=== PATIENT | female | born 1985 | race African-American/Black ===

== ENCOUNTER 2022-05-15 13:42 | Emergency (ER) | payer OTHER, SELFPAY ==
--- NOTE | ~2022-05-15 | XR_ITS ---
EXAMINATION: XR chest 2V DATE: 05/15/2022 14:47 INDICATION: Shortness of breath TECHNIQUE: frontal and lateral views of the chest were obtained. COMPARISON: None FINDINGS: Mildly decreased lung volumes on the lateral projection likely due to incomplete inspiration. No foca l airspace opacities, pulmonary edema, pleural effusion or pneumothorax.. The cardiomediastinal silho uette is normal. Visualized bones and soft tissues are unremarkable. IMPRESSION: 1. No acute cardiopulmonary disease. Reviewed, dictated and finalized at location A. NISTRATIVE OFFICER
[2022-05-15 13:50] VITALS: BP 141/76; PULSE 100; RESP 16; TEMP 36.6; O2SAT 100
--- NOTE | 2022-05-15 14:15 | ECG_ITS ---
Measurements Intervals [place] Rate: 87 P: 52 [place]: 167 QRS: 38 QRSD: 105 T: 35 QT: 346 QTc: 417 Interpretive Statements SINUS RHYTHM MINIMAL Q WAVES- INF/HIGH LAT LEADS BASELINE ARTIFACT- I, III, AVR, AVL, V4, V6 BORDERLINE ECG NO PREVIOUS ECG AVAILABLE FOR COMPARISON Electronically Signed On 05-15-2022 20:49:55 FLAKER OPERATOR by Davey Lazar D.O.
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
[2022-05-15 14:41] LABS: Basophils Percent Auto 0.5 % (0.2-1.2); Eosinophils Percent Auto 0.3 % (0-4.4); Hematocrit 38.7 % (37.0-47.0); Hemoglobin 12.6 g/dL (12.0-15.0); Immature Granulocyte Absolute 0.02 K/mm3 (0.00-0.031); Immature Granulocyte Percent A 0.3 % (0-0.5); Lymphocytes Absolute Auto 0.66 K/mm3 (0.9-3.2); Lymphocytes Percent Auto 11.1 % (18.3-44.2); Mean Corpuscular HGB Conc 32.6 g/dl (32-36); Mean Corpuscular Volume 95.1 fl (80-100); Mean Platelet Volume 9.1 fl (7.4-10.4); Monocytes Absolute Auto 0.7 K/mm3 (0.1-0.6); Monocytes Percent Auto 11.1 % (2.6-8.5); Neutrophils Absolute Auto 4.5 K/mm3 (1.3-6.7); Neutrophils Percent Auto 76.7 % (45.5-73.1); Platelet Count Result 256 k/mm3 (150-375); Red Blood Count 4.07 M/mm3 (4.2-5.4); Red Cell Distribution Width 12.5 % (11.5-14.5); White Blood Count 5.9 K/mm3 (4.5-10.0)
[2022-05-15 14:50] LABS: Anion Gap 9 mmol/L (8-16); Blood Urea Nitrogen 7 mg/dL (7-17); Calcium 8.9 mg/dL (8.4-10.2); Carbon Dioxide 23 mmol/L (22-30); Chloride 103 mmol/L (98-107); Estimated CRCL calculation 128 ml/min; Estimated Glomerular Filt Rate > 60; Glucose 88 mg/dL (65-110); Potassium 3.1 mmol/L (3.4-5.0); Sodium 135 mmol/L (137-145)
[2022-05-15 15:02] LABS: Troponin I < 0.012 ng/mL (0.000-0.034)
[2022-05-15 15:09] VITALS: RESP 19; O2SAT 99
[2022-05-15] MEDS: ALPRAZolam (*CRX) 0.5 MG TABLET PO (16:13)
== END 2022-05-15 16:17 | disposition home or self-care (01) ==
PROVIDERS: Emergency Provider Emergency Medicine
DX: F41.9 Anxiety disorder, unspecified (principal); R94.31 Abnormal electrocardiogram [ECG] [EKG]
CPT/HCPCS: 36415; 71046; 80048; 84484; 85025; 93005; 99284; A9270

== ENCOUNTER 2025-01-17 08:05 | Emergency (ER) | payer SELFPAY ==
--- NOTE | ~2025-01-17 | US_ITS ---
EXAMINATION: US pelvic complete w TV INDICATION: Right-sided pelvic pain. Frequent urination. Comparison:Right flank pain. Frequent urination. TECHNIQUE: Multiple transabdominal and endovaginal sonographic images of the pelvis performed. FINDINGS: The uterus measures 11 x 3.4 x 5.9 cm. The endometrial complex measures 2 mm. The right ovary measures 2.8 x 2.9 x 1.6 cm and the left ovary measures 3.1 x 3.5 x 1.9 cm. There ar e small follicles in each ovary. Normal doppler signal in both ovaries. There is free fluid in the pelvis. There are no abnormal masses seen on either side. IMPRESSION: 1. Enlarged uterus. Reviewed, dictated and finalized at location B. IMPRESSION: 1. Enlarged uterus.
--- NOTE | ~2025-01-17 | CT_ITS ---
CLINICAL INDICATION: Right flank pain COMPARISON: None. TECHNIQUE: Multiple contiguous axial images of the abdomen and pelvis were performed without the admi nistration of intravenous contrast The dose-length product (DLP) was 511.41 mGy-cm. Automated exposure control and iterative reconstruction technique were employed. FINDINGS/OBSERVATIONS: Visualized lower thorax: The bilateral lung bases are clear. The heart is of normal size, without pericardial effusion. Liver: The liver demonstrates homogeneous attenuation and is enlarged measuring 22 cm in longitudinal dimens ion. Gallbladder and biliary system: The gallbladder is only minimally distended, and otherwise unremarkable. Pancreas: Limited evaluation of the pancreas secondary to the lack of intravenous contrast. Spleen: The spleen demonstrates homogeneous attenuation and is not enlarged. . Kidneys: The bilateral kidneys are unremarkable, without hydronephrosis or renal calculi. Adrenal glands: Unremarkable. Gastrointestinal tract: Fecal stasis within the colon. Appendix: The air-filled appendix is of normal caliber (axial series, images 142 through 151) Vasculature: Unremarkable. Lymph nodes: Limited evaluation without intravenous contrast. Pelvic structures: The bladder is decompressed, limiting its evaluation. The uterus is anteverted and anteflexed, and otherwise unremarkable. Calcified stone within the right hemipelvis, within the lower uterine segment. Body wall and musculoskeletal: Small fat-containing umbilical hernia. No significant degenerative disease within the lower thoracic or lumbosacral spine. IMPRESSION: No obstructive uropathy. Hepatomegaly. Reviewed, dictated and finalized at location A.
--- OUTSIDE RECORDS SUMMARY | 2025-01-17 08:11 | XMS_ITS | Referral Summary ---
Author Organization [facility] [address] Address [address] [place] [address] Care Team Providers Care Radiotelegraph Operator Name Role Phone Jericho Elizondo MD Unavailable [phone] Allergies No known active allergies Medications cetirizine (ZyrTEC) 10 mg tablet Take 1 tablet (10 mg total) by mouth daily 05/21/2024 Active fluticasone propionate (FLONASE) 50 mcg/actuation nasal spray USE 1 SPRAY IN EACH NOSTRIL EVERY NIGHT BEFORE BEDTIME 05/21/2024 Active Active Problems Problem Noted Date Diagnosed Date Breast discharge 07/04/2024 Assessment & Plan (07/04/2024 10:52 AM TRANSPORTATION MAINTENANCE WORKER): -The patient has the practice. Recent right nipple milky discharge which turned to slight bloody discharge last week. No history of same. No injury or trauma. -Examination today is unremarkable. -Recommend serum prolactin level. If elevated recommend repeat 1st thing in the morning. -Recommend bilateral diagnostic mammogram. -Discussed with the patient the low likelihood of breast cancer or other significant pathology. She agrees to proceed with the evaluation. -Encouraged regular monthly self-breast examinations. H/O section 07/04/2024 H/O dilation and curettage 07/04/2024 Protein S deficiency 07/04/2024 HSV (herpes simplex virus) anogenital infection 07/04/2024 H/O tubal ligation 07/04/2024 FH: breast cancer 07/04/2024 Social History Tobacco Use Types Packs/Day Years Used Date Smoking Tobacco: Never Passive Smoke Exposure: Never Smokeless Tobacco: Never Personal Safety Answer Date Recorded Getting School Help Needed Not on file 07/03 Comments No Sex and Gender Information Value Date Recorded Sex Assigned at Not on file Legal Sex Female 7:45 PM TRANSPORTATION MAINTENANCE WORKER Gender Identity Not on file Sexual Orientation Not on file Last Filed Vital Signs Vital Sign Reading Time Taken Comments Blood Pressure 118/70 07/04/2024 10:30 AM TRANSPORTATION MAINTENANCE WORKER Pulse 80 09/25/2018 10:15 PM CDT Temperature 36.8 C (98.2 F) 09/25/2018 10:15 PM CDT Respiratory Rate - - Oxygen Saturation 97% 09/25/2018 10:15 PM CDT Inhaled Oxygen Concentration - - Weight 92.1 kg (203 lb) 07/04/2024 10:30 AM TRANSPORTATION MAINTENANCE WORKER Height 165 cm (5' 4.96) 07/04/2024 10:30 AM TRANSPORTATION MAINTENANCE WORKER Body Mass Index 33.82 07/04/2024 10:30 AM TRANSPORTATION MAINTENANCE WORKER Plan of Treatment Not on file Procedures Procedure Name Priority Date/Time Associated Diagnosis Comments DIAGNOSTIC MAMMOGRAM BILATERAL W ABHAY Schedule Routine, Read Routine (OP Routine) 07/18/2024 2:04 PM TRANSPORTATION MAINTENANCE WORKER Nipple discharge from Last 3 Months or Most Recently Relevant to Health Maintenance Results * Diagnostic Mammogram Bilateral W Abhay (07/18/2024 2:04 PM TRANSPORTATION MAINTENANCE WORKER) Anatomical Region Laterality Modality Breast Bilateral Mammography 07/18/2024 3:09 PM TRANSPORTATION MAINTENANCE WORKER Impressions 07/18/2024 3:09 PM TRANSPORTATION MAINTENANCE WORKER No suspicious findings in the right breast. No mammographic or sonographic findings to explain right nipple discharge. Breast surgery consultation is recommended for further evaluation. Breast MRI with and without contrast can be considered. Asymmetry in the left breast upper outer quadrant appears to correlate to an island of fibroglandular tissue on ultrasound. Six-month follow-up diagnostic mammogram and ultrasound are recommended to assess stability. If MRI is pursued, this finding can be further evaluated at that time. Due to family history, the patient was given contact information for the breast cancer risk team. OVERALL FINAL ASSESSMENT: BI-RADS Category 3: Probably benign Results and recommendations were discussed with the patient. Electronically signed by: Pedro Salomon 07/18/2024 3:09 PM TRANSPORTATION MAINTENANCE WORKER Bilateral diagnostic mammogram with CAD and tomosynthesis, bilateral breast ultrasound limited: CLINICAL HISTORY: 38-year-old woman describes intermittent clear discharge from the right nipple every few weeks over the past few months, with one episode of bloody nipple discharge. Recent prolactin level on 07/07/2024 was normal. . Prolactin level from 07/04/2024 with elevated. Family history of breast cancer, with mother due to breast cancer at age 44. Baseline mammogram. DENSITY: The breasts are heterogeneously dense, which may obscure small masses. FINDINGS: There are no spiculated masses, malignant type calcifications, distortion or visible adenopathy. There is focal asymmetry in the upper outer left breast most apparent in the CC projection. Ultrasound of the retroareolar right breast demonstrates normal tissue. There is no evidence of ductal ectasia. Ultrasound of the upper outer quadrant of the left breast demonstrates a band of echodense tissue in the 1-2 o'clock position approximately 7 cm from the nipple, correlating to mammographic asymmetry. Jericho Elizondo MD IMG MAMMO PROCEDURES Final R esult from Last 3 Months or Most Recently Relevant to Health Maintenance Insurance [facility] Care Teams Radiotelegraph Operator Relationship Specialty Start Date End Date Jericho Elizondo MD [address] [place] [address] Jewelry Casting Model Maker Obstetrics and Gynecology 07/28/24
--- OUTSIDE RECORDS SUMMARY | 2025-01-17 08:11 | XMS_ITS | Clinical Summary ---
Author Organization [facility] [address] [place] [address] Care Team Providers Care Color Matcher Name Role Phone Jericho Elizondo MD Unavailable [phone] Allergies No known active allergies Medications cetirizine (ZyrTEC) 10 mg tablet Take 1 tablet (10 mg total) by mouth daily 05/21/2024 Active fluticasone propionate (FLONASE) 50 mcg/actuation nasal spray USE 1 SPRAY IN EACH NOSTRIL EVERY NIGHT BEFORE BEDTIME 05/21/2024 Active Active Problems Problem Noted Date Diagnosed Date Breast discharge 07/04/2024 Assessment & Plan (07/04/2024 10:52 AM INSPECTOR CONVEYOR LINE): -The patient has the practice. Recent right [...] tubal ligation 07/04/2024 FH: breast cancer 07/04/2024 Surgical History Surgery Date Site/Laterality Comments SECTION DILATION AND CURETTAGE OF UTERUS Medical History Medical History Date Comments Allergy Social History Tobacco Use Types Packs/Day Years Used Date Smoking Tobacco: Never Passive Smoke Exposure: Never Smokeless Tobacco: Never Personal Safety Answer Date Recorded Getting School Help Needed Not on file 07/03 Comments No Sex and Gender Information Value Date Recorded Sex Assigned at Not on file Legal Sex Female 7:45 PM INSPECTOR CONVEYOR LINE Gender Identity Not on file Sexual Orientation Not on file Obstetrics History Para Term AB IAB SAB Ectopic Multiple Livin g Live Births 7 5 5 2 2 5 5 Date Outcome GA Total Labor Labor/2nd/3rd Weight Sex Type Anes PTL Eboni A1 A5 Name Clin 11/12 Term M C-S j incis Living 07/16 Term M C-S j incis Living 01/31 Term M C-S j incis Living 2013 SAB 10/04 Term M C-S j incis Living 07/08 Term M C-S j incis Living Last Filed Vital Signs Vital Sign Reading Time Taken Comments Blood Pressure 118/70 07/04/2024 10:30 AM INSPECTOR CONVEYOR LINE Pulse 80 09/25/2018 10:15 PM CDT Temperature 36.8 C (98.2 F) 09/25/2018 10:15 PM CDT Respiratory Rate - - Oxygen Saturation 97% 09/25/2018 10:15 PM CDT Inhaled Oxygen Concentration - - Weight 92.1 kg (203 lb) 07/04/2024 10:30 AM INSPECTOR CONVEYOR LINE Height 165 cm (5' 4.96) 07/04/2024 10:30 AM INSPECTOR CONVEYOR LINE Body Mass Index 33.82 07/04/2024 10:30 AM INSPECTOR CONVEYOR LINE Plan of Treatment Health Maintenance Due Date Last Done Comments Cervical Cancer Screening 1984 Depression Screening 1984 Hepatitis C Screening 1984 Varicella Vaccines (1 of 2 - 13+ 2-dose series) 1997 Hepatitis B Screening 2002 Regular Well Visit/Exam 18-64 2002 HPV Vaccines (3 - 3-dose SCD M series) 03/06/2019 11/05/2018, 09/03/2018 Influenza Vaccine (#1) 2025 9, 04/26/2015 Breast Cancer Screening-Mammogram 07/18/2025 07/18/2024 DTaP/Tdap/Td Vaccine (3 - Td or Tdap) 04/25/2029 04/25/2019, 07/30/2015 Pneumococcal vaccine <65 Aged Out No longer eligible based on patient's age to complete this topic Procedures Procedure Name Priority Date/Time Associated Diagnosis Comments DIAGNOSTIC MAMMOGRAM BILATERAL W ABHAY Schedule Routine, Read Routine (OP Routine) 07/18/2024 2:04 PM INSPECTOR CONVEYOR LINE Nipple discharge from Last 3 Months or Most Recently Relevant to Health Maintenance Results * Diagnostic Mammogram Bilateral W Abhay (07/18/2024 2:04 PM INSPECTOR CONVEYOR LINE) Anatomical Region Laterality Modality Breast Bilateral Mammography 07/18/2024 3:09 PM INSPECTOR CONVEYOR LINE Impressions 07/18/2024 3:09 PM INSPECTOR CONVEYOR LINE No suspicious findings in the right breast. [...] discussed with the patient. Electronically signed by: Jannette Case M.D. Narrative 07/18/2024 3:09 PM INSPECTOR CONVEYOR LINE Bilateral diagnostic mammogram with CAD and tomosynthesis, [...] Most Recently Relevant to Health Maintenance Insurance [facility] Care Teams Color Matcher Relationship Specialty Start Date End Date Jericho Elizondo MD [address] [place] [address] Brush Filler Hand Obstetrics and Gynecology 07/28/24
[2025-01-17 08:12] VITALS: BP 136/70; PULSE 95; RESP 16; TEMP 36.4; O2SAT 100
[2025-01-17 08:37] LABS: BEDSIDEPREGUCG Negative (Negative)
[2025-01-17 08:47] LABS: BEDSIDEPREGUCG Negative (Negative)
[2025-01-17 08:57] VITALS: BP 127/81; PULSE 79; RESP 15; O2SAT 100
[2025-01-17] MEDS: SODIUM CHLORIDE 0.9% IV 1,000 ML 999 ML IV CONT (08:58)
[2025-01-17] MEDS: KETOROLAC 30 MG/ML VIAL (*BKC) IV PUSH (08:59)
[2025-01-17 09:10] LABS: Add Urine Microscopic? YES; Appearance Urine Clear (Clear); Glucose Urine UA Negative (Negative); Leukocyte Esterase Ur Trace LEU/UL (Negative); Nitrate Urine Negative (Negative); Non Pathogenic Casts 0-2; Specific Grav Ur 1.006 (1.001-1.035)
[2025-01-17 09:23] LABS: Alanine Aminotransferase 24 U/L (6-35); Albumin Level 3.6 g/dL (3.5-5.1); Alkaline Phosphatase 84 U/L (38-126); Anion Gap 7 mmol/L (4-12); Aspartate Amino Transferase 39 U/L (14-36); Bilirubin,Total 0.3 mg/dL (0.2-1.3); Blood Urea Nitrogen 7 mg/dL (7-17); Calcium 8.8 mg/dL (8.4-10.2); Carbon Dioxide 26 mmol/L (22-30); Chloride 105 mmol/L (98-107); Estimated CRCL calculation 101 ml/min; Estimated Glomerular Filt Rate > 60; Glucose 101 mg/dL (65-110); Potassium 3.7 mmol/L (3.4-5.0); Sodium 138 mmol/L (137-145); Total Protein 7.2 g/dL (6.3-8.2)
[2025-01-17 09:30] LABS: Hematocrit 34.1 % (37.0-47.0); Hemoglobin 11.0 g/dL (12.0-15.0); Immature Granulocyte Percent A 1.4 % (0-0.5); Lymphocytes Absolute Auto 1.14 K/mm3 (0.9-3.2); Mean Corpuscular HGB Conc 32.3 g/dl (32-36); Mean Corpuscular Hemoglobin 32.0 pg (26-34); Mean Corpuscular Volume 99.1 fl (80-100); Nucleated Red Blood Cells Absolute Auto 0.000 K/mm3 (0.0-0.012); Nucleated Red Blood Cells Perc 0.0 % (0.0-0.2); Platelet Count Result 364 k/mm3 (150-375); Red Blood Count 3.44 M/mm3 (4.2-5.4); White Blood Count 7.6 K/mm3 (4.5-10.0)
[2025-01-17 09:42] VITALS: BP 141/95; PULSE 69; RESP 16; O2SAT 100
--- NOTE | 2025-01-17 11:02 | PC.NURSE ---
Report given to Ana M Titus RN all questions answered
--- NOTE | 2025-01-17 11:06 | PC.NURSE ---
Dr Goldberg aware of patients pain med request
[2025-01-17] MEDS: MORPHINE SULFATE (*CRX) 4 MG/ML INJ IV PUSH (11:22)
[2025-01-17 11:23] VITALS: BP 142/89; PULSE 66; RESP 18; O2SAT 100
--- NOTE | 2025-01-17 12:00 | ED_ITS ---
HPI - General Adult General Chief complaint: Urogenital-Female Stated complaint: pelvic/flank pain Time Seen by Provider: 01/17/25 08:10 History of Present Illness HPI narrative: Patient is a 39-year-old female who presents ER with right-sided pelvic and flank pain. Associated with frequent urination. No nausea or vomiting. Comes in waves. No alleviating factors. No dysuria. Has been on antibiotics without improvement. Last unprotected sex was 1 day after her symptoms began and her previous intercourse have been several months. She does not think she has any abnormal vaginal discharge or bleeding. Related Data Allergies Allergy/AdvReac Type Severity Reaction Status Date / Time No Known Allergies Allergy Verified 01/17/25 08:19 Review of Systems 2 Review of Systems: All systems reviewed & are unremarkable except as noted in HPI and below Constitutional: Constitutional: Reports no additional constitutional complaints Cardiovascular: Cardiovascular: Reports no additional cardiovascular complaints Respiratory: Respiratory: Reports no additional respiratory complaints Gastrointestinal: Gastrointestinal: Reports no additional gastrointestinal complaints Genitourinary: Genitourinary: Reports no additional female genitourinary complaints [facility] Past Medical History Medical History (Updated 01/17/25 @ 12:04 by Shay Goldberg MD) Healthy female adult Surgical History Surgical History (Updated 05/15/22 @ 15:19 by Shay Goldberg MD) No pertinent past surgical history Social History Social History (Updated 05/15/22 @ 15:19 by Shay Goldberg MD) Smoking status: Never smoker Exam 2 Narrative: GENERAL: Well-appearing, well-nourished, and in no acute distress. HEAD: Normocephalic, atraumatic. ENT: Mucous membranes moist. CHEST: Clear to auscultation. No respiratory distress. HEART: Regular rate and rhythm. Normal peripheral pulses. ABDOMEN: Soft, nontender, nondistended. No CVA tenderness EXTREMITIES: Normal range of motion. No edema. SKIN: Warm, dry, no rash. NEURO: Alert and oriented x3. PSYCH: Normal mood and affect. Course Course Emergency Course: Patient resting comfortably. Informed of results. Appropriate for discharge home. Moderate fecal stasis. Discharge with stool softener. Mag citrate here. Vital Signs Vital signs: Vital Signs Temperature 97.5 F L 01/17/25 08:12 Pulse Rate 95 01/17/25 08:12 Respiratory Rate 16 01/17/25 08:12 Blood Pressure 136/70 01/17/25 08:12 Pulse Oximetry 100 01/17/25 08:12 Oxygen Delivery Room Air 01/17/25 08:12 Temperature 97.5 F L 01/17/25 08:12 Pulse Rate 85 01/17/25 12:21 Respiratory Rate 16 01/17/25 12:21 Blood Pressure 117/62 01/17/25 12:21 Pulse Oximetry 98 01/17/25 12:21 Oxygen Delivery Room Air 01/17/25 08:12 Medical Decision Making Vital Signs Vital Signs: Vital Signs Temperature 97.5 F L 01/17/25 08:12 Pulse Rate 95 01/17/25 08:12 Respiratory Rate 16 01/17/25 08:12 Blood Pressure 136/70 01/17/25 08:12 Pulse Oximetry 100 01/17/25 08:12 Oxygen Delivery Room Air 01/17/25 08:12 Temperature 97.5 F L 01/17/25 08:12 Pulse Rate 85 01/17/25 12:21 Respiratory Rate 16 01/17/25 12:21 Blood Pressure 117/62 01/17/25 12:21 Pulse Oximetry 98 01/17/25 12:21 Oxygen Delivery Room Air 01/17/25 08:12 Lab Data 01/17/25 08:54 01/17/25 08:54 Labs: Lab Results 01/17/25 01/17/25 01/17/25 Range/Units 08:19 08:45 08:54 WBC 7.6 (4.5-10.0) K/mm3 RBC 3.44 L (4.2-5.4) M/mm3 Hgb 11.0 L (12.0-15.0) g/dL Hct 34.1 L (37.0-47.0) % MCV 99.1 (80-100) fl MCH 32.0 (26-34) pg MCHC 32.3 (32-36) g/dl RDW 12.0 (11.5-14.5) % Plt Count 364 (150-375) k/mm3 MPV 8.8 (7.4-10.4) fl Immature Gran % (Auto) 1.4 H (0-0.5) % Neut % (Auto) 74.1 H (45.5-73.1) % Lymph % (Auto) 14.9 L (18.3-44.2) % [place] % (Auto) 7.6 (2.6-8.5) % Eos % (Auto) 1.3 (0-4.4) % Baso % (Auto) 0.7 (0.2-1.2) % Lymph # (Auto) 1.14 (0.9-3.2) K/mm3 [place] # (Auto) 0.6 (0.1-0.6) K/mm3 Eos # (Auto) 0.1 (0-0.3) K/mm3 Baso # (Auto) 0.1 (0.0-0.1) K/mm3 Abs Immat Gran (auto) 0.11 H (0.00-0.031) K/mm3 Absolute Neuts (auto) 5.7 (1.3-6.7) K/mm3 Absolute Nucleated RBC 0.000 (0.0-0.012) K/mm3 Nucleated RBC % 0.0 (0.0-0.2) % Sodium 138 (137-145) mmol/L Potassium 3.7 (3.4-5.0) mmol/L Chloride 105 (98-107) mmol/L Carbon Dioxide 26 (22-30) mmol/L Anion Gap 7 (4-12) mmol/L BUN 7 (7-17) mg/dL Creatinine 0.65 L (0.7-1.0) mg/dL Estim Creat Clear Calc 101 ml/min Estimated GFR > 60 (59 - ) Glucose 101 (65-110) mg/dL Calcium 8.8 (8.4-10.2) mg/dL Total Bilirubin 0.3 (0.2-1.3) mg/dL AST 39 H (14-36) U/L ALT 24 (6-35) U/L Alkaline Phosphatase 84 (38-126) U/L Total Protein 7.2 (6.3-8.2) g/dL Albumin 3.6 (3.5-5.1) g/dL Urine Color Yellow (Yellow) Urine Appearance Clear (Clear) Urine pH 7.0 (5.0-9.0) Ur Specific [place] 1.006 (1.001-1.035) Urine Protein Negative (Negative) mg/dL Urine Glucose (UA) Negative (Negative) mg/dL Urine Ketones Negative (Negative) mg/dL Ur Blood (Man) Negative (Negative) Urine Nitrate Negative (Negative) Urine Bilirubin Negative (Negative) Urine Urobilinogen 0.2 (<2.0) mg/dL Leukocyte Esterase Rfl Trace H (Negative) HUSSEIN/UL Urine RBC 0-2 (0-2) /hpf Urine WBC 0-5 (0-3) /hpf Ur Squamous Epith Cells Few (Few) /hpf Urine Bacteria Rare /hpf Urine Casts 0-2 POC Urine HCG, Qual Negative Negative (Negative) C. trachomatis (PCR) Not detected (NOT DETECTE) N. gonorrhoeae (PCR) Not detected (NOT DETECTE) Imaging Data Radiologist's impression: ITS Impressions Abdomen/Pelvis CT 01/17/25 08:50 IMPRESSION: No obstructive uropathy. Hepatomegaly. Pelvic/Transvag US 01/17/25 11:03 IMPRESSION: 1. Enlarged uterus. Discharge Plan Discharge Clinical Impression: Constipation Patient Disposition: Home Condition: Stable Instructions: Constipation (ED) Additional Instructions: Return to the emergency department if you develop severe abdominal pain, severe nausea and vomiting to the point where you are unable to keep down fluids, if you develop chest pain or difficulty breathing, blood in your stool, dizziness or fainting, or if you develop any other new or concerning symptoms as these could be signs of more serious medical illness. Try to stay well hydrated. Patient Language: Citizen Of [place] Prescriptions: New docusate sodium [Colace] 100 mg capsule 100 mg PO BID Qty: 14 0RF No Action alprazolam 0.5 mg tablet 0.5 mg PO BID PRN (Reason: anxiety) Qty: 7 0RF Follow-up/Referrals: Mac Murphy MD [Physician] - 1 Week PHYSICIAN,STOREROOM KEEPER [Primary Care Provider] -
--- NOTE | 2025-01-17 12:20 | PC.NURSE ---
Per MD verbal approval, pt. sent home with magnesium citrate.
[2025-01-17 12:21] VITALS: BP 117/62; PULSE 85; RESP 16; O2SAT 98
== END 2025-01-17 12:23 | disposition home or self-care (01) ==
PROVIDERS: Emergency Provider Emergency Medicine
DX: K59.00 Constipation, unspecified (principal)
CPT/HCPCS: 36415; 74176; 76830; 76856; 80053; 81001; 81025; 85025; 87491; 87591; 96361; 96374; 96375; 99284; J1885; J2270; J7030

== ENCOUNTER 2025-04-10 05:25 | Emergency (ER) | payer SELFPAY ==
--- NOTE | 2025-04-10 07:12 | ED_ITS ---
HPI - Eye Problem General Chief complaint: Eye Problems Stated complaint: eye swelling Time Seen by Provider: 04/10/25 07:02 History of Present Illness HPI Narrative: Patient is a 39-year-old female who presents ER with swelling pain upper eyelids bilaterally. Worsening over last 5 days. Initially started as a stye that she could see on the lower lid of her right eyelid. It was able to drain a couple days ago. Since then she has continued to use [id number] treatment but her eyelids continue swell. She had more pain today is a soft tissue around her right eye. She has no change in vision. Her extraocular movements are intact. No drainage from her eye. Related Data Allergies Allergy/AdvReac Type Severity Reaction Status Date / Time No Known Allergies Allergy Verified 01/17/25 08:19 Review of Systems Constitutional: Constitutional: Reports no additional constitutional complaints Eyes: Eyes: Reports no additional eye complaints PMFSH Past Medical History Medical History (Updated 04/10/25 @ 07:14 by Shay Goldberg MD) Healthy female adult Surgical History Surgical History (Updated 05/15/22 @ 15:19 by Shay Goldberg MD) No pertinent past surgical history Social History Social History (Updated 05/15/22 @ 15:19 by Shay Goldberg MD) Smoking status: Never smoker Exam Narrative: GENERAL: Well-appearing, well-nourished, and in no acute distress. HEAD: Normocephalic, atraumatic. EYES: PERRLA and EOMI. Injected conjunctiva bilaterally especially on the lower lids. The remnants of stye noted without drainage in the lower lids. There is edema of the upper and lower lids bilaterally but no red/hot/indurated tissue. Mild discomfort with palpation of the soft tissue near the right eye as compared to left eye. ENT: Mucous membranes moist. NECK: Supple. Painless range of motion CHEST: Clear to auscultation. No respiratory distress. HEART: Regular rate and rhythm. No murmur heard. Normal peripheral pulses. EXTREMITIES: Normal range of motion. No edema. NEURO: Alert and oriented x3. Course Course Emergency Course: Troponin suspect developing preseptal cellulitis. Orbital cellulitis felt unlikely as she has normal range of motion in arm vision. Her eyes are not proptotic. Discussed treatment plan and patient verbalized understanding. Discussed use warm compresses and avoiding contact lenses. Discharged home. Discharge Plan Discharge Clinical Impression: Preseptal cellulitis Patient Disposition: Home Condition: Stable Instructions: Periorbital Cellulitis (ED) Additional Instructions: Return to the ER if you have worsening swelling/pain, you have loss of vision, you cannot move your neck/head, or have additional concerns. Follow up with an eye doctor. Patient Language: [place] Prescriptions: New amoxicillin-pot clavulanate 875-125 mg tablet 1 tablet PO Q12H Qty: 14 0RF sulfamethoxazole-trimethoprim [Bactrim DS] 800-160 mg tablet 1 tablet PO Q12H Qty: 14 0RF erythromycin 5 mg/gram (0.5 %) ointment 0.5 inch EACH EYE QID Qty: 3.5 0RF hydrocodone-acetaminophen 5-325 mg tablet 1 tablet PO Q6H PRN (Reason: pain) Qty: 12 0RF No Action alprazolam 0.5 mg tablet 0.5 mg PO BID PRN (Reason: anxiety) Qty: 7 0RF docusate sodium [Colace] 100 mg capsule 100 mg PO BID Qty: 14 0RF Follow-up/Referrals: [facility] [Outside] PHYSICIAN,POCKET CREASER [Primary Care Provider, Internal Medicine] Stand Alone Forms: Work/School Release IP
[2025-04-10 07:23] VITALS: BP 129/92; PULSE 71; RESP 20; TEMP 36.4; O2SAT 100
== END 2025-04-10 07:36 | disposition home or self-care (01) ==
PROVIDERS: Emergency Provider Emergency Medicine
DX: L03.213 Periorbital cellulitis (principal)
CPT/HCPCS: 99283